=== PATIENT | male | born 1945 | race Caucasian/White ===

== ENCOUNTER 2017-01-16 09:34 | Emergency (ER) | payer OTHER ==
[~2017-01-16] VITALS: Ht 175.3 cm; Wt 58.5 kg
[2017-01-16 09:37] VITALS: Ht 175.3 cm; Wt 58.5 kg
--- NOTE | 2017-01-16 11:43 | ERD ---
ER Documentation Chief Complaint Chief Complaint fell 5 days ago, bruise to left forehead and face, no loc, no neuro deficit HPI 72 y/o male, previously healthy, presents to the emergency department c/o mild headache and facial pain located in the left galindo, that started 4 ago after a GLF, per patient it was a mechanical fall. Pain is dull, rated 3/10. Denies LOC, no dizziness, no visual problems. No N/V/D. No history of taking anticoagulants. Treatment attempted: none ROS All systems reviewed and are negative except as per history of present illness. Medications Home Meds Active Scripts Acetaminophen* (Tylenol*) 325 Mg Tablet, 1 TAB PO Q6 Y for PAIN AND OR ELEVATED TEMP, #20 TAB Prov:SOL DON MD 01/16/17 Physical Exam Vitals Vital Signs Date Time Temp Pulse Resp B/P Pulse Ox O2 Delivery O2 Flow Rate FiO2 01/16/17 09:37 98.1 78 18 139/69 95 Physical Exam Alert, oriented, in mild distress Head: 6x6 cm approx. area of periorbital ecchymoses, tenderness and edema Eyes: Extraocular movement intact. Normal Conjunctiva ENT: Normal External Ears, Nose and Mouth. Neck: Full range of motion..~ No meningismus. Resp: Clear to auscultation bilaterally Cardio: Regular rate and rhythm, no murmurs Abd: Soft, non tender, non distended. Normal bowel sounds Skin: No petechiae or rashes Back: No midline or flank tenderness Ext: No cyanosis, or edema Neur: Awake and alert Psych: Normal Mood and Affect Procedures/MDM 72 y/o male patient, presents to the ED c/o facial contusion and headache for 5 days after mechanical fall. Physical exam revealed an extensive frontal hematoma. Neurovascular exam intact. Vital signs unremarkable. Differential diagnosis include but not limited to:head concussion, subdural hematoma, intracranial bleeding. Low suspicion for syncopal episode. Radiological images included: CT head w/o contrast: Negative for intracranial hemorrhage. Physical examination and clinical presentation consistent most likely with head concussion w/o LOC and facial contusion. During the ED course the patient remained stable. Results and medical impression discussed with patient. The patient will be discharged home. If symptoms persist, worsen or new symptoms develop, then patient is instructed to follow-up with the primary care provider. If the patient is unable to see the primary care provider, then return to the ED immediately. Departure Diagnosis: Primary Impression: Head concussion Additional Impression: Facial contusion Condition: Stable SOL DON MD Jan 16, 2017 11:43
--- NOTE | 2017-01-16 12:01 | RADRPT ---
PROCEDURE: CT head without intravenous contrast CLINICAL INDICATION: Concussion. COMPARISON: None relevant listed. TECHNIQUE: Axial CT images from skull base to vertex with coronal and sagittal reformats. DOSE: The estimated administered radiation dose was CTDI vol = 45 mGy. DLP = 630 mGy-cm. One or mor e of the following dose reduction techniques were used: automated exposure control, adjustment of th e mA and/or kV according to patient size, or use of iterative reconstruction. FINDINGS: Parenchyma: No acute hemorrhage, large territorial infarction, or mass. Mild amount of periventricul ar and subcortical white matter hypodensity, a nonspecific finding often associated with chronic brad roangiopathy. Partially empty sella. Ventricles: Mild generalized volume with proportionate ex vacuo ventricular dilation. Extra-axial spaces: No herniation or midline shift. Paranasal sinuses: Clear. Mastoids and middle ears: Clear. Vessels: Mild calcified atherosclerotic arterial plaque. Bones: Normal. No fracture. Extracranial soft tissues: Trace left frontal scalp hematoma measuring 3 mm thick (series 2, image 1 0). Additional comment: None. IMPRESSION: 1. Small left frontal scalp hematoma without underlying fracture or acute intracranial hemorrhage. 2. Chronic senescent findings characterized by volume loss and white matter changes. RPTAT: EE Physician Cynthia Date Time Electronically viewed and signed by Physician Cynthia on 01/16/2017 12:00 /
[2017-01-16] MEDS ORDERED: ACET325T33 PO (12:35)
== END 2017-01-16 12:47 | disposition home or self-care (01) ==
LOC: FTE 09:34
DX: S06.0X0A Concussion without loss of consciousness, initial encounter (principal); W18.39XA Other fall on same level, initial encounter; Y92.9 Unspecified place or not applicable
CPT/HCPCS: 70450